=== PATIENT | female | born 1940 | race Caucasian/White ===

== ENCOUNTER 2019-12-18 06:11 | Day surgery (SDC) | payer MEDICARE, BC ==
[2019-12-08 16:39] LABS: BASOPHILS % (AUTO) 0.6 % (0-1); EOSINOPHILS # (AUTO) 0.1 X10'3 (0-0.9); LYMPHOCYTES # (AUTO) 1.5 X10'3 (1.1-4.8); LYMPHOCYTES % (AUTO) 24.4 % (21-51); MEAN CORPUSCULAR HEMOGLOBIN 33.6 PG (27.0-31.0); MEAN CORPUSCULAR HGB CONC 33.1 g/dL (33.0-36.5); MEAN CORPUSCULAR VOLUME 101.4 FL (78-98); MEAN PLATELET VOLUME 8.7 FL (7.4-10.4); MONOCYTES # (AUTO) 0.5 X10'3 (0-0.9); NEUTROPHILS # (AUTO) 3.9 X10'3 (1.8-7.7); PRE OP HEMATOCRIT 39.5 % (35.0-45.0); PRE OP HEMOGLOBIN 13.1 g/dL (12.0-16.0); PRE OP PLATELET COUNT 148 X10'3 (140-440); RED BLOOD COUNT 3.89 X10'6 (4.20-5.60); RED CELL DISTRIBUTION WIDTH 13.7 % (11.5-14.5)
[2019-12-08 16:56] LABS: ALBUMIN/GLOBULIN RATIO 1.2 (1.1-1.5); ALKALINE PHOSPHATASE 52 IU/L (46-116); BLOOD UREA NITROGEN 29 MG/DL (7-18); BUN/CREATININE RATIO 31.2 (6.6-38.0); CHLORIDE 107 MMOL/L (99-107); CREATININE 0.93 MG/DL (0.40-0.90); PRE OP ALT 21 U/L (30-65); PRE OP ANION GAP 6 (8-16); PRE OP AST 19 U/L (10-37); PRE OP BILIRUB, TOTAL 0.5 MG/DL (0.0-1.0); PRE OP GLUCOSE 96 MG/DL (70-104); PRE OP POTASSIUM 4.1 MMOL/L (3.4-5.1); PRE OP SODIUM 142 MMOL/L (135-145); TOTAL CARBON DIOXIDE 28.6 MMOL/L (24-32); TOTAL PROTEIN 7.3 G/DL (6.4-8.2); eGFR 58 ML/MIN
[2019-12-18] VITALS (7 sets, daily range): BP systolic 130–150; BP diastolic 69–78
[~2019-12-18] VITALS: Ht 170.2 cm; Wt 62.7 kg
[~2019-12-18 06:11] MED LIST: AMLO5TAB16 PO; CALC250T2 PO; CYAN50008 PO; DOXY-11 PO; LEVO25TA7 PO; LOSA100T57 PO; ceFAZolin/D5W- 1GM premix 50 ML IV ONE; famotidine 20mg tablet PO ONE; ringers solution, lacted 1,000 ML IV SCH
[2019-12-18] MEDS ORDERED: BUPIVAcaine/PF 2.5mg/ml (0.25%) 10ml vial ONE (06:32)
[2019-12-18] MEDS ORDERED: LIDOcaine 1% (10mg/ml) 2ml vial ONE (06:55)
[2019-12-18] MEDS ORDERED: LIDOcaine 0.5% (5mg/ml) 50ml vial ONE (07:58)
[2019-12-18] MEDS ORDERED: morphine 2 MG/ML inj. syringe IV PRN (08:05)
[2019-12-18] MEDS ORDERED: meperidine/PF 25mg/ml syringe IV PRN ×3 (08:05)
[2019-12-18] MEDS ORDERED: ringers solution, lacted 1,000 ML IV SCH (08:05)
[2019-12-18] MEDS ORDERED: morphine 4 MG/ML inj SYRINge IV PRN (08:05)
[2019-12-18] MEDS ORDERED: ondansetron/PF 4mg/2ml inj IV PRN (08:05)
[2019-12-18] MEDS ORDERED: proCHLORperazine 10 MG/2 ml inj IV PRN (08:05)
[2019-12-18] MEDS ORDERED: fentaNYL/PF 50MCG/1 ML 2ML syringe ONE (09:10)
[2019-12-18] MEDS ORDERED: midazolam 2 mg/2 ml injection ONE (09:17)
[2019-12-18] MEDS ORDERED: propofol inj 20 ML IV ONE (09:47)
--- NOTE | 2019-12-18 09:57 | NUR ---
Received from OR via [facility], accompanied by Anesthesiologist JULES and report given by Anesthesiolgist. PATIENT WITH SPLINT TO LEFT HAND AND WRIST AREA THAT IS CDI. VSS. LIZ BOOGIE. PATIENT WITH + CAP REFILL AND MOVEMENT OF ALL FINGERS TO LEFT HAND. ROOM AIR AND VSS. Addendum: 12/18/19 at 1004 by Joe Khan RN, RN Amended: Links added.
--- NOTE | 2019-12-18 10:47 | NUR ---
All dc criteria for discharge home has been met. IV taken out without complications. All questions answered regarding dc paperwork. Vss. Significant other present to take patient home. Dressings cdi and vital signs stable. Taken out via wheelchair to personal vehicle where patient taken home by family/friend. Addendum: 12/18/19 at 1056 by Joe Khan RN, RN Amended: Links added.
== END 2019-12-18 10:50 | disposition home or self-care (01) ==
LOC: PAS 06:11
PROVIDERS: ATTEND Orthopaedic Surgery Hand Surgery
DX: M72.0 Palmar fascial fibromatosis [Dupuytren] (principal); I10 Essential (primary) hypertension; E03.9 Hypothyroidism, unspecified; Z79.899 Other long term (current) drug therapy; Z11.59 Encounter for screening for other viral diseases; Z98.890 Other specified postprocedural states; Z87.891 Personal history of nicotine dependence; Z72.89 Other problems related to lifestyle; Z82.49 Family history of ischemic heart disease and other diseases of the circulatory system; Z80.9 Family history of malignant neoplasm, unspecified
CPT/HCPCS: 26123; 36415; 80053; 82948; 85025; 93005; A6222; J0690; J2001; J2250; J2704; J3010; J3490; J7120; U0003; A4215; A4618; A6449; A7000

== ENCOUNTER 2023-08-23 06:21 | Day surgery (SDC) | payer MEDICARE, BC ==
[2023-08-23] VITALS (8 sets, daily range): BP systolic 101–137; BP diastolic 51–101; PULSE 63–76; RESP 15–16; TEMP 97.9; O2SAT 95–100
[~2023-08-23] VITALS: Ht 170.2 cm; Wt 59.7 kg
[~2023-08-23 06:21] MED LIST changes: -CYAN50008 PO; +CYAN50009 PO; -LOSA100T57 PO; +LOSA100T58 PO; -ceFAZolin/D5W- 1GM premix 50 ML IV ONE; -famotidine 20mg tablet PO ONE; -ringers solution, lacted 1,000 ML IV SCH
[2023-08-23] MEDS ORDERED: ASPI81TA52 PO (06:59)
[2023-08-23] MEDS ORDERED: ATOR40TA72 PO (06:59)
[2023-08-23] MEDS ORDERED: SOTA80TA73 PO (06:59)
[2023-08-23] MEDS ORDERED: CHOL125C6 PO (06:59)
[2023-08-23] MEDS ORDERED: APIX5TAB3 PO (06:59)
[2023-08-23] MEDS ORDERED: diphenhydrAMINE 25mg capsule PO ONE (07:00)
[2023-08-23] MEDS ORDERED: amiodarone 150mg/dext, iso-os 100 ML IV ONE (07:00)
[2023-08-23] MEDS ORDERED: LORazepam 0.5 MG tablet PO ONE (07:00)
[2023-08-23] MEDS ORDERED: atropine 0.1mg/ml 10ml syringe IV ONE (07:00)
[2023-08-23] MEDS: enoxaparin 60mg/0.6ml syringe SUBCUT ONE (07:46)
[2023-08-23] MEDS: normal saline 1000ml 1,000 ML IV SCH (07:46)
[2023-08-23 08:02] LABS: INR 1.1 INR; PROTHROMBIN TIME 11.6 SECONDS (9.0-12.0)
[2023-08-23 08:04] LABS: EOSINOPHILS # (AUTO) 0.1 X10'3 (0-0.9); HEMATOCRIT 42.5 % (35.0-45.0); HEMOGLOBIN 14.2 g/dl (12.0-16.0); MEAN CORPUSCULAR HGB CONC 33.4 g/dL (33.0-36.5); MONOCYTES # (AUTO) 0.4 X10'3 (0-0.9); MONOCYTES % (AUTO) 7.9 % (2-12)
[2023-08-23 08:09] LABS: BASOPHILS % (AUTO) 0.6 % (0-1); EOSINOPHILS % (AUTO) 1.3 % (0-6); LYMPHOCYTES # (AUTO) 1.2 X10'3 (1.1-4.8); LYMPHOCYTES % (AUTO) 24.6 % (21-51); MEAN CORPUSCULAR HEMOGLOBIN 34.2 PG (27.0-31.0); MEAN CORPUSCULAR VOLUME 102.4 FL (78-98); NEUTROPHILS # (AUTO) 3.3 X10'3 (1.8-7.7); NEUTROPHILS % (AUTO) 65.6 % (42-75); RED BLOOD COUNT 4.15 X10'6 (4.20-5.60); RED CELL DISTRIBUTION WIDTH 13.5 % (11.5-14.5)
[2023-08-23 08:10] LABS: ANION GAP 11 (8-16); BLOOD UREA NITROGEN 25 MG/DL (7-18); BUN/CREATININE RATIO 31.6 (10.0-20.0); CALCIUM 9.1 MG/DL (8.5-10.1); CHLORIDE 104 MMOL/L (99-107); CREATININE 0.79 MG/DL (0.40-0.90); GLUCOSE 95 MG/DL (70-104); POTASSIUM 3.6 MMOL/L (3.5-5.1); SODIUM 144 MMOL/L (135-145); TOTAL CARBON DIOXIDE 29.5 MMOL/L (24-32); eCRCL 53 ML/MIN; eGFR 70 ML/MIN
[2023-08-23] MEDS: morphine 10mg/ml inj. IV ONE (08:15)
[2023-08-23] MEDS: MIDAZolam 1mg/ml 10ml vial IV ONE (08:15)
[2023-08-23 08:45] LABS: PLATELET COUNT 112 X10'3 (140-440)
== END 2023-08-23 09:18 | disposition home or self-care (01) ==
LOC: SSTAY O 06:21
PROVIDERS: ATTEND Internal Medicine Cardiovascular Disease
DX: I48.0 Paroxysmal atrial fibrillation (principal); I35.0 Nonrheumatic aortic (valve) stenosis; I10 Essential (primary) hypertension; E03.9 Hypothyroidism, unspecified; M81.0 Age-related osteoporosis without current pathological fracture; I27.29 Other secondary pulmonary hypertension; I65.23 Occlusion and stenosis of bilateral carotid arteries; E78.5 Hyperlipidemia, unspecified; Z79.01 Long term (current) use of anticoagulants; Z79.899 Other long term (current) drug therapy; Z79.82 Long term (current) use of aspirin; Z86.73 Personal history of transient ischemic attack (TIA), and cerebral infarction without residual deficits; Z98.890 Other specified postprocedural states; Z82.49 Family history of ischemic heart disease and other diseases of the circulatory system; Z81.1 Family history of alcohol abuse and dependence
CPT/HCPCS: 36415; 80048; 85025; 85610; 92960; 93005; J1650; J2250; J2274; J7030; 96360

== ENCOUNTER 2023-09-15 08:56 | Emergency (ER) | payer MEDICARE, BC ==
[~2023-09-15] VITALS: Ht 170.2 cm; Wt 58.8 kg
[~2023-09-15 08:56] MED LIST changes: +APIX5TAB3 PO; +ASPI81TA52 PO; +ATOR40TA72 PO; +CHOL125C6 PO; +SOTA80TA73 PO
[2023-09-15 08:57] VITALS: BP 154/65; PULSE 65; RESP 16; TEMP 98; O2SAT 94
== END 2023-09-15 12:50 | disposition home or self-care (01) ==
LOC: ER 08:57
DX: R04.0 Epistaxis (principal); Z79.899 Other long term (current) drug therapy; Z79.2 Long term (current) use of antibiotics
CPT/HCPCS: 93005; 99283

== ENCOUNTER 2025-05-10 08:43 | Day surgery (SDC) | payer MEDICARE, BC ==
--- NOTE | 2025-04-27 12:42 | ELECTROCARDIOGRAPH REPORT ---
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 ISABELLE Britt Measurements Intervals [place] Rate: 60 P: 45 [place]: 190 QRS: -14 QRSD: 91 T: 71 QT: 417 QTc: 417 Interpretive Statements Sinus rhythm Multiple premature complexes, vent & supraven Probable left ventricular hypertrophy ST elevation, consider inferior injury Electronically Signed On 04-27-2025 18:49:[address] ISABELLE Britt Please click the below link to view image of tracing.
[2025-04-27 12:51] LABS: MEAN PLATELET VOLUME 9.0 FL (7.4-10.4); PRE OP HEMATOCRIT 39.8 % (35.0-45.0); PRE OP HEMOGLOBIN 13.3 g/dL (12.0-16.0); PRE OP PLATELET COUNT 136 X10'3 (140-440); PRE OP WHITE BLOOD COUNT 6.5 10'3 (4.8-10.8); RED CELL DISTRIBUTION WIDTH 14.8 % (11.5-14.5)
[2025-04-27 13:06] LABS: CREATININE 0.64 MG/DL (0.40-0.90); PRE OP ALT 17 U/L (30-65); PRE OP ANION GAP 6 (8-16); PRE OP AST 19 U/L (10-37); PRE OP BILIRUB, TOTAL 0.9 MG/DL (0.0-1.0); PRE OP GLUCOSE 99 MG/DL (70-104); PRE OP POTASSIUM 4.5 MMOL/L (3.4-5.1); PRE OP SODIUM 141 MMOL/L (135-145); TOTAL CARBON DIOXIDE 33.1 MMOL/L (24-32); eGFR 89 ML/MIN
[2025-05-10] VITALS (7 sets, daily range): BP systolic 109–162; BP diastolic 55–78; PULSE 60–68; RESP 13–19; TEMP 98.5; O2SAT 94–100
[~2025-05-10] VITALS: Ht 170.2 cm; Wt 54.4 kg
[~2025-05-10 08:43] MED LIST changes: -APIX5TAB3 PO; +ASPI-101 PO; -ASPI81TA52 PO; +BUPIVAcaine/PF 5 mg/ml 10ml ONE; -CALC250T2 PO; +CARV3.1291 PO; -CHOL125C6 PO; -CYAN50009 PO; +DOCUMENT DATE & TIME OF BETA-BLOCKER PO ONE; -LEVO25TA7 PO; +LEVO50TA8 PO; +LIDOcaine 2% (20mg/ml) 5ml vial ONE; -LOSA100T58 PO; +LOSA50TA64 PO; -SOTA80TA73 PO; +ceFAZolin 2gm/dext,iso 50mL 50 ML IV ONE
[2025-05-10] MEDS ORDERED: BUPIVAcaine/PF 2.5mg/ml (0.25%) 10ml vial ONE (08:59)
[2025-05-10] MEDS ORDERED: fentaNYL/PF 50MCG/1 ML 2ML syringe ONE (09:51)
[2025-05-10] MEDS ORDERED: midazolam 1 mg/ML 2ml injection ONE (09:51)
[2025-05-10] MEDS: BUPIVAcaine/PF 2.5mg/ml (0.25%) 10ml vial IJ ONE (10:35)
[2025-05-10] MEDS ORDERED: propofol inj 20 ML IV ONE (10:40)
--- NOTE | 2025-05-10 19:15 | OPERATIVE REPORT ---
Operative Report Providers to ~ Date of Procedure: May 10, 2025 Pre-Operative Diagnosis: Dupuytren's contracture left small finger and PIP arthritis Post-Operative Diagnosis Dupuytren's contracture left small finger, left small finger proximal interphalangeal joint arthritis Procedure Performed Left palm and small finger fasciectomy, left small finger proximal interphalangeal joint arthrodesis Surgeon: Edil Parks MD Structural Engineer None Anesthesiologist: Master Gonzáles Type of Anesthesia: Regional Findings: Estimated Blood Loss: None Specimen Removed: None Description of Procedure: The patient is a 4-year-old woman who has Dupuytren's contracture causing contracture mostly of the MCP joint of her left small finger. She also has a instability and deformity of the small finger PIPJ joint surgery is indicated to improve function. Risks and benefits were discussed with the patient and she agreed to proceed. She was brought to the operating room where the block was given along with the antibiotics. The arm was prepped and draped in usual manner and time-out procedure was observed. An incision was made from the mid palm out to the PIP crease on the palmar side of the hand and finger. Diseased fascia was iden tified and dissected free of the ulnar neurovascular bundle in which it was entwined. This was done out to the PIP joint. The contracture was relieved on this side of the digit. The incision was irrigated and closed with Prolene suture. On the dorsum of the hand a longitudinal incision was made centered over the PIPJ joint with a tendon splitting incision and excision of the collateral ligaments. Sagittal saw was used to remove any remaining bone and cut to smooth surfaces at about a 40 degree angle. A guide pin was advanced under fluoro through the proximal phalanx head and up the shaft of the middle phalanx. It was checked under fluoro and the proper size screw was chosen. Drilling was done followed by placement of the screw compressing the arthrodesis site. Good position of the digit was noted and fluoro images were saved. The incision was irrigated and closed in layers. Marcaine was injected and a sterile dressing was applied along with a splint. The tourniquet was released the hand perfused well and she was taken to the recovery room in stable condition. She tolerated the procedure well EDIL PARKS Jr., MD May 10, 2025 19:15
== END 2025-05-10 11:51 | disposition home or self-care (01) ==
LOC: PAS 08:43
PROVIDERS: ATTEND Orthopaedic Surgery Hand Surgery
DX: M72.0 Palmar fascial fibromatosis [Dupuytren] (principal); M19.042 Primary osteoarthritis, left hand; I49.3 Ventricular premature depolarization; I10 Essential (primary) hypertension; I48.91 Unspecified atrial fibrillation; L71.9 Rosacea, unspecified; R73.09 Other abnormal glucose; Z96.641 Presence of right artificial hip joint
CPT/HCPCS: 26123; 26860; 36415; 80053; 82948; 85025; 93005; A4215; A4618; A6222; A7000; C1713; J0665; J2250; J2704; J3010; J3490; J7120; Z7506; Z7512; Z7610; J2003